=== PATIENT | male | born 1990 | race Caucasian/White ===

== ENCOUNTER → 2018-08-17 | Emergency (ER) | payer OTHER ==
[~2018-08-17] VITALS: Ht 175.3 cm; Wt 70.3 kg
[~2018-08-17] MED LIST: EPIPEN 2-P0.3 MG/0.3 IM; KEFLEX500 MG PO; NORCO 5-325 TA1 EACH PO; ZOFRAN ODT4 MG PO
== END ==
LOC: ED 18:40
DX: S90.31XA Contusion of right foot, initial encounter (principal); F17.200 Nicotine dependence, unspecified, uncomplicated; Z91.013 Allergy to seafood; Z91.018 Allergy to other foods; W01.198A Fall on same level from slipping, tripping and stumbling with subsequent striking against other object, initial encounter
CPT/HCPCS: 73610; 73650; 99283

== ENCOUNTER 2019-11-02 04:33 | Emergency (ER) | payer OTHER ==
[~2019-11-02] VITALS: Ht 175.3 cm; Wt 83.9 kg
[2019-11-02] MEDS ORDERED: ZOFRAN4 MG PO (05:46)
[2019-11-02] MEDS ORDERED: VENTOLIN HFA18 GM INH (05:46)
--- NOTE | 2019-11-03 14:02 | EKG ---
[facility] [address] [facility] [place] [address] Signed Normal sinus rhythm Normal ECG When compared with ECG of 29-NOV-2015 10:10, Nonspecific T wave abnormality now evident in Anterior leads Confirmed by CHARISSE GREENFIELD DO ([id number]) on 11/03/2019 2:01:59 PM Electronically Signed By: CHARISSE GREENFIELD DO 11/03/19 1402 PATIENT NAME: NIRMALAEMMANUEL NAVJOT Electrocardiogram DATE OF : 86 PHYSICIAN: CHARISSE GREENFIELD DO REPORT #: [id number] REPORT IS CONFIDENTIAL AND NOT TO BE RELEASED WITHOUT AUTHORIZATION
== END 2019-11-02 06:00 | disposition home or self-care (01) ==
LOC: ED 04:33
DX: B34.9 Viral infection, unspecified (principal); J45.909 Unspecified asthma, uncomplicated; F17.200 Nicotine dependence, unspecified, uncomplicated; Z88.8 Allergy status to other drugs, medicaments and biological substances; Z91.013 Allergy to seafood; Z91.018 Allergy to other foods
CPT/HCPCS: 71045; 80053; 83735; 85025; 85379; 93005; 93010; 99285-25